=== PATIENT | female | born 1990 | race Caucasian/White ===

== ENCOUNTER 2016-09-15 13:58 | Emergency (ER) | payer OTHER ==
[2016-09-15] MEDS ORDERED: KETOROLAC 30 MG/ML VIAL (J1885) As Ordered ONE (16:57)
[2016-09-15] MEDS ORDERED: diazePAM 5 MG TAB As Ordered ONE (16:58)
[2016-09-15] MEDS ORDERED: PERCOCET 5MG/325MG TAB As Ordered ONE (16:58)
[2016-09-15 17:58] LABS: BASO # 0.2 K/mm3 (0.0-0.2); BASO % 1.5 % (0.0-1.0); EOS % 0.2 % (0.0-3.0); LARGE UNSTAINED CELL # 0.1 K/mm3 (0.0-0.4); LARGE UNSTAINED CELL % 1.3 % (0.0-4.0); LYMPH # 1.8 K/mm3 (1.5-6.5); LYMPH % 17.1 % (24.0-44.0); MEAN CORPUSCULAR HEMOGLOBIN 26.4 pg (27.0-33.0); MEAN CORPUSCULAR HGB CONC 33.1 g/dl (32.0-36.5); MEAN CORPUSCULAR VOLUME 79.9 fl (80.0-96.0); MONO # 0.5 K/mm3 (0.0-0.8); MONO % 5.1 % (0.0-5.0); NEUTROPHILS # 7.2 K/mm3 (1.8-7.7); NEUTROPHILS % 74.9 % (36.0-66.0); PLATELET COUNT, AUTOMATED 301 k/mm3 (150-450); RED CELL DISTRIBUTION WIDTH 14.6 % (11.5-14.5); WHITE BLOOD COUNT 9.6 K/mm3 (4.0-10.0)
[2016-09-15 18:41] LABS: ERYTHROCYTE SEDIMENTATION RATE 14 mm/hr (0-20)
--- NOTE | 2016-09-15 19:16 | EDDOCDS ---
Physician Documentation [facility] Name: Xin Waterman Age: 26 yrs Sex: Female : 1990 Arrival Date: 09/15/2016 Time: 13:58 Bed 31 Private MD: Berny Oscar Disposition: 09/15 18:50 Critical Care: Critical care not applicable. le Disposition: 09/15/16 18:48 Discharged to Home/Self Care. Impression: Low back pain. - Condition is Stable. - Discharge Instructions: Back Pain, Adult, Musculoskeletal Pain. - Medication Reconciliation, Local Pharmacy Hours form. - Follow up: Berny Oscar; When: Keep your scheduled appointment on 09/23; Reason: Recheck today's complaints, Continuance of care, To establish care. - Problem is an ongoing problem. - Symptoms are unchanged. - Notes: Continue medications previously prescribed for you All labs are WNL, there isn't any sign of infection and no sign of spinal cord compression (the 2 emergent reasons an MRI would be ordered in an ER) Keep your scheduled appointment, on 09/23, your PCP can get authorization for MRI to be completed, if he feels you need one Return to the ED for fever, numbness in genital area, loss of bowel/bladder control or any other concerns Historical: - Allergies: PENICILLINS; - Home Meds: 1. cyclobenzaprine 10 mg Oral tab 1 tab 3 times per day 2. ibuprofen 800 mg Oral tab 1 tab 3 times per day - PMHx: Degenerative disc disease; - PSHx: back surgery; Cholecystectomy; Tonsillectomy; ; - Social history: Smoking status: Patient uses tobacco products, current some day smoker. No barriers to communication noted, The patient speaks fluent Prydeinig, Speaks appropriately for age. - Family history: No immediate family members are acutely ill. - : The pt / caregiver states he / she is not on anticoagulants. Home medication list is obtained from the patient. - Exposure Risk Screening:: None identified. 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 7 in. (170.18 cm) (R); Pain 6/10; 19:13 BP 150 / 81; Pulse 83; Resp 17; Temp 98.3(O); Pulse Ox 99% ; mb9 14:00 Body Mass Index 36.65 (106.14 kg, 170.18 cm) gr2 MDM: 16:32 [facility] Payment Agreement was scanned into [employer] and attached to record. gjb 16:32 Financial registration complete. gjb 16:39 ketorolac 60 mg IM once ordered. le 16:39 Diazepam 5 mg PO once ordered. le 16:39 oxyCODONE-acetaminophen 5 mg-325 mg 1 tabs PO once ordered. le 16:40 CBC with Diff Ordered. EDMS 16:40 ESR Ordered. EDMS 16:40 CRP Ordered. EDMS 16:48 Misc. Nursing Order ordered. le 16:48 Misc Crime Victim Specialist Order ordered. le 18:12 Misc Crime Victim Specialist Order complete. mb9 18:12 CBC with Diff Reviewed. le 18:47 CBC with Diff Reviewed. le 18:47 ESR Reviewed. le 18:47 CRP Reviewed. le Administered Medications: 17:42 Not Given (Patient Refused): ketorolac 60 mg IM once mb9 17:42 Not Given (Patient Refused): Diazepam 5 mg PO once mb9 17:42 Not Given (Patient Refused): oxyCODONE-acetaminophen 5 mg-325 mg 1 tabs PO once mb9 Signatures: Dispatcher [employer] EDMS Seth Pandey RN RN mlb1 Elke Grant FNP FNP le Belles, Michael, RN RN mb9 Gianna Celis The chart was reviewed and I authenticate all verbal orders and agree with the evaluation and treatment provided.Corrections: (The following items were deleted from the chart) 14:57 14:48 Spine. Lumbosacral, complete+XR ordered. EDMS EDMS Attachments: 16:32 [facility] [place] Payment Agreement gjb MTDD
--- NOTE | 2016-09-15 19:16 | EDDOCDS ---
Nurse's Notes [facility] Name: Xin Waterman Age: 26 yrs Sex: Female : 1990 Arrival Date: 09/15/2016 Time: 13:58 Bed 31 Private MD: Berny Oscar Diagnosis: Low back pain Presentation: 09/15 14:04 Presenting complaint: Patient states: Low back pain began a month ago after a fall mlb1 worsening since. Acute neurological deficits are not present. Mechanism of Injury: Fall. Adult Sepsis Screening: The patient does not have new or worsening altered mentation. Patient's respiratory rate is less than 22. Systolic blood pressure is greater than 100. Patient has a qSOFA score of 0- Negative Sepsis Screen. Suicide/Homicide risk assessment- the patient denies having any suicidal and/or homicidal ideations and does not present with any other emotional, behavioral or mental health complaints. Status: The patient is a dependent. Transition of care: patient was not received from another setting of care. 14:04 Acuity: HELENA Level 4 mlb1 14:04 Method Of Arrival: Walkin/Carried/Asstd mlb1 Triage Assessment: 14:09 General: Appears in no apparent distress, Behavior is appropriate for age, cooperative. mlb1 Pain: Location: low back area Pain currently is 7 out of 10 on a pain scale. Pt Declines HIV testing. Musculoskeletal: Range of motion intact in all extremities. 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 cyclobenzaprine 10 mg Oral tab 1 tab 3 times per day 2. ibuprofen 800 mg Oral tab 1 tab 3 times per day - PMHx: Degenerative disc disease; - PSHx: back surgery; Cholecystectomy; Tonsillectomy; ; - Social history: Smoking status: Patient uses tobacco products, current some day smoker. No barriers to communication noted, The patient speaks fluent Pashto, Speaks appropriately for age. - Family history: No immediate family members are acutely ill. - : The pt / caregiver states he / she is not on anticoagulants. Home medication list is obtained from the patient. - Exposure Risk Screening:: None identified. Screenin:13 Screening information is obtained from the patient. Fall risk: No risks identified. mb9 Assistance ADL's: requires no assistance with activities of daily living. Abuse/DV Screen: The patient / caregiver reports he/she is: not in a situation that causes fear, pain or injury. Nutritional screening: No deficits noted. Advance Directives: There is no active DNR order. home support is adequate. Assessment: 17:43 General: Behavior is crying, fussy, inappropriate for age. Pain: Location: low back mb9 area Pain currently is 6 out of 10 on a pain scale. Neurological: Reports numbness. Neurological: Reports pt reports numbness down left leg. . Respiratory: Airway is patent Respiratory effort is even, unlabored. 18:47 Reassessment:. Reassessment: Patient states symptoms have not improved. General: mb9 Appears in no apparent distress, Behavior is fussy. Vital Signs: 14:00 BP 143 / 75; Pulse 77; Resp 18 S; Temp 97.4(O); Pulse Ox 100% on R/A; Weight 106.14 kg gr2 (R); Height 5 ft. 7 in. (170.18 cm) (R); Pain 6/10; 19:13 BP 150 / 81; Pulse 83; Resp 17; Temp 98.3(O); Pulse Ox 99% ; mb9 14:00 Body Mass Index 36.65 (106.14 kg, 170.18 cm) gr2 Vitals: 14:00 Log In Time: September 15, 2016 at 14:00. gr2 ED Course: 14:00 Patient visited by Pradip Chester. gr2 14:00 Berny Oscar is Private Physician. gr2 14:00 Patient moved to Waiting gr2 14:01 Patient visited by Pradip Chester. gr2 14:01 Patient moved to Pre RCE gr2 14:04 Patient visited by Seth Pandey, JOANNE. mlb1 14:05 Triage Initiated mlb1 14:10 Patient visited by Seth Pandey, JOANNE. mlb1 16:15 Patient moved to 31 [facility] 16:16 Elke Grant FNP is [facility]. le 16:23 Patient visited by Elke Grant FNP. le 16:32 [facility] [place] Agreement was scanned into [employer] and attached to record. gjb 16:41 Patient name changed from Xin\S\M\S\Guevara\S\ to Xin\S\ \S\Guevara. EDMS 17:42 Patient visited by Seth Valiente RN. mb9 17:42 CBC with Diff Sent. mb9 17:42 ESR Sent. mb9 17:42 CRP Sent. mb9 18:46 Patient visited by Seth Valiente RN. mb9 18:47 Berny Oscar is Referral Physician. le 19:13 The patient / caregiver is instructed regarding the plan of care and ED course. mb9 19:13 No IV's were initiated during this patient's visit. No procedures done that require mb9 assistance. Administered Medications: 17:42 Not Given (Patient Refused): ketorolac 60 mg IM once mb9 17:42 Not Given (Patient Refused): Diazepam 5 mg PO once mb9 17:42 Not Given (Patient Refused): oxyCODONE-acetaminophen 5 mg-325 mg 1 tabs PO once mb9 Order Results: Lab Order: CBC with Diff; SPEC'M 09/15/16 17:31 Test: WHITE BLOOD COUNT; Value: 9.6; Range: 4.0-10.0; Units: K/mm3; Status: F Test: RED BLOOD COUNT; Value: 4.98; Range: 4.00-5.40; Units: M/mm3; Status: F Test: HEMOGLOBIN; Value: 13.2; Range: 12.0-16.0; Units: g/dl; Status: F Test: HEMATOCRIT; Value: 39.8; Range: 36.0-47.0; Units: %; Status: F Test: MEAN CORPUSCULAR VOLUME; Value: 79.9; Range: 80.0-96.0; Abnormal: Below low normal; Units: fl; Status: F Test: MEAN CORPUSCULAR HEMOGLOBIN; Value: 26.4; Range: 27.0-33.0; Abnormal: Below low normal; Units: pg; Status: F Test: MEAN CORPUSCULAR HGB CONC; Value: 33.1; Range: 32.0-36.5; Units: g/dl; Status: F Test: RED CELL DISTRIBUTION WIDTH; Value: 14.6; Range: 11.5-14.5; Abnormal: Above high normal; Units: %; Status: F Test: PLATELET COUNT, AUTOMATED; Value: 301; Range: 150-450; Units: k/mm3; Status: F Test: NEUTROPHILS %; Value: 74.9; Range: 36.0-66.0; Abnormal: Above high normal; Units: %; Status: F Test: LYMPH %; Value: 17.1; Range: 24.0-44.0; Abnormal: Below low normal; Units: %; Status: F Test: MONO %; Value: 5.1; Range: 0.0-5.0; Abnormal: Above high normal; Units: %; Status: F Test: EOS %; Value: 0.2; Range: 0.0-3.0; Units: %; Status: F Test: BASO %; Value: 1.5; Range: 0.0-1.0; Abnormal: Above high normal; Units: %; Status: F Test: LARGE UNSTAINED CELL %; Value: 1.3; Range: 0.0-4.0; Units: %; Status: F Test: NEUTROPHILS #; Value: 7.2; Range: 1.8-7.7; Units: K/mm3; Status: F Test: LYMPH #; Value: 1.8; Range: 1.5-6.5; Units: K/mm3; Status: F Test: MONO #; Value: 0.5; Range: 0.0-0.8; Units: K/mm3; Status: F Test: EOS #; Value: 0.0; Range: 0.0-0.50; Units: K/mm3; Status: F Test: BASO #; Value: 0.2; Range: 0.0-0.2; Units: K/mm3; Status: F Test: LARGE UNSTAINED CELL #; Value: 0.1; Range: 0.0-0.4; Units: K/mm3; Status: F Lab Order: ESR; SPEC'M 09/15/16 17:31 Test: ERYTHROCYTE SEDIMENTATION RATE; Value: 14; Range: 0-20; Units: mm/hr; Status: F Lab Order: CRP; SPEC'M 09/15/16 17:31 Test: C REACTIVE PROTEIN QUANTITATIV; Value: < 0.30; Range: 0.00-0.30; Units: MG/DL; Status: F Outcome: 18:48 Discharge ordered by Provider. le 19:13 Discharge Assessment: Patient awake, alert and oriented x 3. No cognitive and/or mb9 functional deficits noted. Patient verbalized understanding of disposition instructions. patient administered narcotics - no. The following High Risk Discharge criteria are identified: None. Discharged to home ambulatory. Condition: good Condition: stable Condition: improved. Discharge instructions given to patient, Instructed on discharge instructions, follow up and referral plans. medication usage, Demonstrated understanding of instructions, Pt was receptive of discharge instructions/ teaching. No special radiology studies were completed. Property :Personal belongings accompany Pt. 19:15 Patient left the ED. mb9 Signatures: Dispatcher [employer] EDMayi Gaviria, RN RN Seth Mcclelland RN RN mlb1 Elke Grant, QUALITY ASSURANCE SUPERVISOR FINAL QUALITY ASSURANCE SUPERVISOR FINAL Pradip Samaniego 2 Seth ValienteRN RN mb9 Gianna Celis TANIA
--- NOTE | 2016-09-17 20:17 | EDDOCDS ---
Nurse's Notes [facility] Name: Xin Waterman Age: 26 yrs Sex: Female : 1990 Arrival Date: 09/15/2016 Time: 13:58 Bed 31 Private MD: Berny Oscar Diagnosis: Low back pain Presentation: 09/15 14:04 Presenting complaint: Patient states: Low back pain began a month ago after a fall mlb1 worsening since. Acute neurological deficits are not present. Mechanism of Injury: Fall. Adult Sepsis Screening: The patient does not have new or worsening altered mentation. Patient's respiratory rate is less than 22. Systolic blood pressure is greater than 100. Patient has a qSOFA score of 0- Negative Sepsis Screen. Suicide/Homicide risk assessment- the patient denies having any suicidal and/or homicidal ideations and does not present with any other emotional, behavioral or mental health complaints. Status: The patient is a dependent. Transition of care: patient was not received from another setting of care. 14:04 Acuity: HELENA Level 4 mlb1 14:04 Method Of Arrival: Walkin/Carried/Asstd mlb1 Triage Assessment: 14:09 General: Appears in no apparent distress, Behavior is appropriate for age, cooperative. mlb1 Pain: Location: low back area Pain currently is 7 out of 10 on a pain scale. Pt Declines HIV testing. Musculoskeletal: Range of motion intact in all extremities. 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 cyclobenzaprine 10 mg Oral tab 1 tab 3 times per day 2. ibuprofen 800 mg Oral tab 1 tab 3 times per day - PMHx: Degenerative disc disease; - PSHx: back surgery; Cholecystectomy; Tonsillectomy; ; - Social history: Smoking status: Patient uses tobacco products, current some day smoker. No barriers to communication noted, The patient speaks fluent Bengali, Speaks appropriately for age. - Family history: No immediate family members are acutely ill. - : The pt / caregiver states he / she is not on anticoagulants. Home medication list is obtained from the patient. - Exposure Risk Screening:: None identified. Screenin:13 Screening information is obtained from the patient. Fall risk: No risks identified. mb9 Assistance ADL's: requires no assistance with activities of daily living. Abuse/DV Screen: The patient / caregiver reports he/she is: not in a situation that causes fear, pain or injury. Nutritional screening: No deficits noted. Advance Directives: There is no active DNR order. home support is adequate. Assessment: 17:43 General: Behavior is crying, fussy, inappropriate for age. Pain: Location: low back mb9 area Pain currently is 6 out of 10 on a pain scale. Neurological: Reports numbness. Neurological: Reports pt reports numbness down left leg. . Respiratory: Airway is patent Respiratory effort is even, unlabored. 18:47 Reassessment:. Reassessment: Patient states symptoms have not improved. General: mb9 Appears in no apparent distress, Behavior is fussy. Vital Signs: 14:00 BP 143 / 75; Pulse 77; Resp 18 S; Temp 97.4(O); Pulse Ox 100% on R/A; Weight 106.14 kg gr2 (R); Height 5 ft. 7 in. (170.18 cm) (R); Pain 6/10; 19:13 BP 150 / 81; Pulse 83; Resp 17; Temp 98.3(O); Pulse Ox 99% ; mb9 14:00 Body Mass Index 36.65 (106.14 kg, 170.18 cm) gr2 Vitals: 14:00 Log In Time: September 15, 2016 at 14:00. gr2 ED Course: 14:00 Patient visited by Pradip Chester. gr2 14:00 Berny Oscar is Private Physician. gr2 14:00 Patient moved to Waiting gr2 14:01 Patient visited by Pradip Chester. gr2 14:01 Patient moved to Pre RCE gr2 14:04 Patient visited by Seth Pandey, JOANNE. mlb1 14:05 Triage Initiated mlb1 14:10 Patient visited by Seth Pandey, JOANNE. mlb1 16:15 Patient moved to 31 [facility] 16:16 Elke Grant FNP is [facility]. le 16:23 Patient visited by Elke Grant FNP. le 16:32 [facility] Payment Agreement was scanned into [employer] and attached to record. gjb 16:41 Patient name changed from Xin\S\M\S\Guevara\S\ to Xin\S\ \S\Guevara. EDMS 17:42 Patient visited by Seth Valiente RN. mb9 17:42 CBC with Diff Sent. mb9 17:42 ESR Sent. mb9 17:42 CRP Sent. mb9 18:46 Patient visited by Seth Valiente RN. mb9 18:47 Berny Oscar is Referral Physician. le 19:13 The patient / caregiver is instructed regarding the plan of care and ED course. mb9 19:13 No IV's were initiated during this patient's visit. No procedures done that require mb9 assistance. 09/16 12:41 T-Sheet-- Draft Copy was scanned into [employer] and attached to record. gb Administered Medications: 09/15 17:42 Not Given (Patient Refused): ketorolac 60 mg IM once mb9 17:42 Not Given (Patient Refused): Diazepam 5 mg PO once mb9 17:42 Not Given (Patient Refused): oxyCODONE-acetaminophen 5 mg-325 mg 1 tabs PO once mb9 Order Results: Lab Order: CBC with Diff; SPEC'M 09/15/16 17:31 Test: WHITE BLOOD COUNT; Value: 9.6; Range: 4.0-10.0; Units: K/mm3; Status: F Test: RED BLOOD COUNT; Value: 4.98; Range: 4.00-5.40; Units: M/mm3; Status: F Test: HEMOGLOBIN; Value: 13.2; Range: 12.0-16.0; Units: g/dl; Status: F Test: HEMATOCRIT; Value: 39.8; Range: 36.0-47.0; Units: %; Status: F Test: MEAN CORPUSCULAR VOLUME; Value: 79.9; Range: 80.0-96.0; Abnormal: Below low normal; Units: fl; Status: F Test: MEAN CORPUSCULAR HEMOGLOBIN; Value: 26.4; Range: 27.0-33.0; Abnormal: Below low normal; Units: pg; Status: F Test: MEAN CORPUSCULAR HGB CONC; Value: 33.1; Range: 32.0-36.5; Units: g/dl; Status: F Test: RED CELL DISTRIBUTION WIDTH; Value: 14.6; Range: 11.5-14.5; Abnormal: Above high normal; Units: %; Status: F Test: PLATELET COUNT, AUTOMATED; Value: 301; Range: 150-450; Units: k/mm3; Status: F Test: NEUTROPHILS %; Value: 74.9; Range: 36.0-66.0; Abnormal: Above high normal; Units: %; Status: F Test: LYMPH %; Value: 17.1; Range: 24.0-44.0; Abnormal: Below low normal; Units: %; Status: F Test: MONO %; Value: 5.1; Range: 0.0-5.0; Abnormal: Above high normal; Units: %; Status: F Test: EOS %; Value: 0.2; Range: 0.0-3.0; Units: %; Status: F Test: BASO %; Value: 1.5; Range: 0.0-1.0; Abnormal: Above high normal; Units: %; Status: F Test: LARGE UNSTAINED CELL %; Value: 1.3; Range: 0.0-4.0; Units: %; Status: F Test: NEUTROPHILS #; Value: 7.2; Range: 1.8-7.7; Units: K/mm3; Status: F Test: LYMPH #; Value: 1.8; Range: 1.5-6.5; Units: K/mm3; Status: F Test: MONO #; Value: 0.5; Range: 0.0-0.8; Units: K/mm3; Status: F Test: EOS #; Value: 0.0; Range: 0.0-0.50; Units: K/mm3; Status: F Test: BASO #; Value: 0.2; Range: 0.0-0.2; Units: K/mm3; Status: F Test: LARGE UNSTAINED CELL #; Value: 0.1; Range: 0.0-0.4; Units: K/mm3; Status: F Lab Order: ESR; SPEC'M 09/15/16 17:31 Test: ERYTHROCYTE SEDIMENTATION RATE; Value: 14; Range: 0-20; Units: mm/hr; Status: F Lab Order: CRP; SPEC'M 09/15/16 17:31 Test: C REACTIVE PROTEIN QUANTITATIV; Value: < 0.30; Range: 0.00-0.30; Units: MG/DL; Status: F Outcome: 18:48 Discharge ordered by Provider. le 19:13 Discharge Assessment: Patient awake, alert and oriented x 3. No cognitive and/or mb9 functional deficits noted. Patient verbalized understanding of disposition instructions. patient administered narcotics - no. The following High Risk Discharge criteria are identified: None. Discharged to home ambulatory. Condition: good Condition: stable Condition: improved. Discharge instructions given to patient, Instructed on discharge instructions, follow up and referral plans. medication usage, Demonstrated understanding of instructions, Pt was receptive of discharge instructions/ teaching. No special radiology studies were completed. Property :Personal belongings accompany Pt. 19:15 Patient left the ED. mb9 Signatures: Dispatcher [employer] EDMS Mayi Lemons, RN RN Verónica Soto, Seth Braga RN RN mlb1 Elke Grant, ELECTRONIC CALIBRATION TECHNICIAN ELECTRONIC CALIBRATION TECHNICIAN Pradip Samaniego 2 Seth ValienteRN RN mb9 Gianna Celis Chart Complete [facility]
--- NOTE | 2016-09-17 20:17 | EDDOCDS ---
Physician Documentation [facility] Name: Xin Waterman Age: 26 yrs Sex: Female : 1990 Arrival Date: 09/15/2016 Time: 13:58 Bed 31 Private MD: Berny Oscar Disposition: 09/15 18:50 Critical Care: Critical care not applicable. le Disposition: 09/15/16 18:48 Discharged to Home/Self Care. Impression: Low back pain. - Condition is Stable. - Discharge Instructions: Back Pain, Adult, Musculoskeletal Pain. - Medication Reconciliation, Local Pharmacy Hours form. - Follow up: Berny Oscar; When: Keep your scheduled appointment on 09/23; Reason: Recheck today's complaints, Continuance of care, To establish care. - Problem is an ongoing problem. - Symptoms are unchanged. - Notes: Continue medications previously prescribed for you All labs are WNL, there isn't any sign of infection and no sign of spinal cord compression (the 2 emergent reasons an MRI would be ordered in an ER) Keep your scheduled appointment, on 09/23, your PCP can get authorization for MRI to be completed, if he feels you need one Return to the ED for fever, numbness in genital area, loss of bowel/bladder control or any other concerns Historical: - Allergies: PENICILLINS; - Home Meds: 1. cyclobenzaprine 10 mg Oral tab 1 tab 3 times per day 2. ibuprofen 800 mg Oral tab 1 tab 3 times per day - PMHx: Degenerative disc disease; - PSHx: back surgery; Cholecystectomy; Tonsillectomy; ; - Social history: Smoking status: Patient uses tobacco products, current some day smoker. No barriers to communication noted, The patient speaks fluent Slovak, Speaks appropriately for age. - Family history: No immediate family members are acutely ill. - : The pt / caregiver states he / she is not on anticoagulants. Home medication list is obtained from the patient. - Exposure Risk Screening:: None identified. 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 7 in. (170.18 cm) (R); Pain 6/10; 19:13 BP 150 / 81; Pulse 83; Resp 17; Temp 98.3(O); Pulse Ox 99% ; mb9 14:00 Body Mass Index 36.65 (106.14 kg, 170.18 cm) gr2 MDM: 16:32 [facility] Payment Agreement was scanned into [employer] and attached to record. b 16:32 Financial registration complete. gjb 16:39 ketorolac 60 mg IM once ordered. le 16:39 Diazepam 5 mg PO once ordered. le 16:39 oxyCODONE-acetaminophen 5 mg-325 mg 1 tabs PO once ordered. le 16:40 CBC with Diff Ordered. EDMS 16:40 ESR Ordered. EDMS 16:40 CRP Ordered. EDMS 16:48 Misc. Nursing Order ordered. le 16:48 Misc Power Nut Runner Operator Order ordered. le 18:12 Misc Power Nut Runner Operator Order complete. mb9 18:12 CBC with Diff Reviewed. le 18:47 CBC with Diff Reviewed. le 18:47 ESR Reviewed. le 18:47 CRP Reviewed. le 09/16 12:41 T-Sheet-- Draft Copy was scanned into [employer] and attached to record. gb Administered Medications: 09/15 17:42 Not Given (Patient Refused): ketorolac 60 mg IM once mb9 17:42 Not Given (Patient Refused): Diazepam 5 mg PO once mb9 17:42 Not Given (Patient Refused): oxyCODONE-acetaminophen 5 mg-325 mg 1 tabs PO once mb9 Signatures: Dispatcher [employer] EDMS Verónica Mariee, Reg Reg Seth Curtis RN RN mlb1 Elke Grant, CANNONEER CANNONEER Seth MunroeRN RN mb9 Gianna Celis The chart was reviewed and I authenticate all verbal orders and agree with the evaluation and treatment provided.Corrections: (The following items were deleted from the chart) 14:57 14:48 Spine. Lumbosacral, complete+XR ordered. EDMS EDMS Attachments: 16:32 [facility] Payment Agreement [facility] 09/16 12:41 T-Sheet-- Draft Copy gb Chart Complete MTDD
--- NOTE | 2016-09-17 20:17 | EDDOCDS ---
Physician Documentation [facility] Name: Xin Waterman Age: 26 yrs Sex: Female : 1990 Arrival Date: 09/15/2016 Time: 13:58 Bed 31 Private MD: Berny Oscar Disposition: 09/15 18:50 Critical Care: Critical care not applicable. le Disposition: 09/15/16 18:48 Discharged to Home/Self Care. Impression: Low back pain. - Condition is Stable. - Discharge Instructions: Back Pain, Adult, Musculoskeletal Pain. - Medication Reconciliation, Local Pharmacy Hours form. - Follow up: Berny Oscar; When: Keep your scheduled appointment on 09/23; Reason: Recheck today's complaints, Continuance of care, To establish care. - Problem is an ongoing problem. - Symptoms are unchanged. - Notes: Continue medications previously prescribed for you All labs are WNL, there isn't any sign of infection and no sign of spinal cord compression (the 2 emergent reasons an MRI would be ordered in an ER) Keep your scheduled appointment, on 09/23, your PCP can get authorization for MRI to be completed, if he feels you need one Return to the ED for fever, numbness in genital area, loss of bowel/bladder control or any other concerns Historical: - Allergies: PENICILLINS; - Home Meds: 1. cyclobenzaprine 10 mg Oral tab 1 tab 3 times per day 2. ibuprofen 800 mg Oral tab 1 tab 3 times per day - PMHx: Degenerative disc disease; - PSHx: back surgery; Cholecystectomy; Tonsillectomy; ; - Social history: Smoking status: Patient uses tobacco products, current some day smoker. No barriers to communication noted, The patient speaks fluent Albanian, Speaks appropriately for age. - Family history: No immediate family members are acutely ill. - : The pt / caregiver states he / she is not on anticoagulants. Home medication list is obtained from the patient. - Exposure Risk Screening:: None identified. GRASS CUTTER: 14:09 LMP N/A - Recent mlb1 Vital Signs: 14:00 BP 143 / 75; Pulse 77; Resp 18 S; Temp 97.4(O); Pulse Ox 100% on R/A; Weight 106.14 kg gr2 / 234 lbs (R); Height 5 ft. 7 in. (170.18 cm) (R); Pain 6/10; 19:13 BP 150 / 81; Pulse 83; Resp 17; Temp 98.3(O); Pulse Ox 99% ; mb9 14:00 Body Mass Index 36.65 (106.14 kg, 170.18 cm) gr2 MDM: 16:32 [facility] Payment Agreement was scanned into ReadWave and attached to record. b 16:32 Financial registration complete. gjb 16:39 ketorolac 60 mg IM once ordered. le 16:39 Diazepam 5 mg PO once ordered. le 16:39 oxyCODONE-acetaminophen 5 mg-325 mg 1 tabs PO once ordered. le 16:40 CBC with Diff Ordered. EDMS 16:40 ESR Ordered. EDMS 16:40 CRP Ordered. EDMS 16:48 Misc. Nursing Order ordered. le 16:48 Misc Converter Operator Order ordered. le 18:12 Misc Converter Operator Order complete. mb9 18:12 CBC with Diff Reviewed. le 18:47 CBC with Diff Reviewed. le 18:47 ESR Reviewed. le 18:47 CRP Reviewed. le 09/16 12:41 T-Sheet-- Draft Copy was scanned into ReadWave and attached to record. gb Administered Medications: 09/15 17:42 Not Given (Patient Refused): ketorolac 60 mg IM once mb9 17:42 Not Given (Patient Refused): Diazepam 5 mg PO once mb9 17:42 Not Given (Patient Refused): oxyCODONE-acetaminophen 5 mg-325 mg 1 tabs PO once mb9 Signatures: Dispatcher [employer] EDMS Verónica Mariee, Reg Reg Seth Curtis RN RN mlb1 Elke Grant, DOCUMENT CONTROLLER DOCUMENT CONTROLLER Seth MunroeRN RN mb9 Gianna Celis The chart was reviewed and I authenticate all verbal orders and agree with the evaluation and treatment provided.Corrections: (The following items were deleted from the chart) 14:57 14:48 Spine. Lumbosacral, complete+XR ordered. EDMS EDMS Attachments: 16:32 [facility] Payment Agreement [facility] 09/16 12:41 T-Sheet-- Draft Copy gb Chart Complete MTDD
== END 2016-09-15 19:15 | disposition home or self-care (01) ==
LOC: M ED 13:58
DX: M54.5 Low back pain (principal); M51.9 Unspecified thoracic, thoracolumbar and lumbosacral intervertebral disc disorder; F17.210 Nicotine dependence, cigarettes, uncomplicated; Z79.899 Other long term (current) drug therapy; Z88.0 Allergy status to penicillin
CPT/HCPCS: 36415; 85025; 85652; 86140; 99283; J1885

== ENCOUNTER → 2016-11-30 | Outpatient (CLI) | payer OTHER ==
--- NOTE | 2016-12-08 23:59 | ECWPNPC ---
PATIENT NAME: JAY HORTON : 1990 GENDER: FEMALE VISIT DATE: 11/30/2016 DISCHARGE DATE: 11/30/16 1503 VISIT LOCKED DATE TIME: PHYSICIAN: ANDREA MELGOZA RESOURCE: ANDREA MELGOZA REASON FOR APPOINTMENT 1. BACK PAIN HISTORY OF PRESENT ILLNESS NEW PATIENT CONSULT: WHEN DID YOUR PAIN FIRST START? . BRIEFLY DESCRIBE HOW YOUR PAIN STARTED? . HOW DOES YOUR PAIN CHANGE WITH TIME? . DOES YOUR PAIN AWAKEN YOU FROM SLEEP? . HOW MANY HOURS OF SLEEP DO YOU NORMALLY GET? . ANY DIAGNOSTIC TESTING? . FACILITY WHERE TESTS WERE DONE? ____. PAIN TREATMENT TREATMENT YES CANCER HAVE YOU EVER HAD ANY TYPE OF CANCER?NO NO. PAIN SCREENING: PATIENT HAS A COMPLAINT OF ACUTE OR CHRONIC PAIN :YES FALL RISK SCREENING: SCREENING :NO FALLS IN THE PAST YEAR ROSARIO INVENTORY: QUESTIONNAIRE ASSESSEDYES SCORE VALUE CALCULATED YES SCORE: NOTES IN BECKS THAT SHE HAS THOUGHTS OF KILLING HERSELF, BUT WHEN ASKED THIS SECIFICALLY, DENIES THIS TODAY'S VISIT: NOTES: REFERRED BY DR MATTHEWS/ALEXUS FOR CHRONIC LOW BACK PAIN WITH INCREASED DISCOMFORT. IS /P LAMI X 3. AFTER OF 2ND CHILD HAD NEW PAIN INTO LEFT LEG TO LEVEL OF KNEE. PAIN IMPROVED AFTER 3RD SURGERY. HAD FALL 08/06 TO BUTTUCK AND PAIN IN LEFT LEG BEGAN TO GET WORSE. NOTES PAIN IN BACK IS INTERMITTANT. PAIN IN LEFT LEG IS MORE INTERMITTANT. USUALLY IS JUST IN LEFT CALF. HAS N/T POST UP POST LEFT LEG - NON TO TOES. LEFT WEAKER THAN RIGHT IMPROVED SINCESURGERY. NO SADDLE N/T, NO LOSS OF BOWELS. PROLONGED SITTING MAKES WORSE. PT WAS KAUSHAL. NOT CURRENTLY DOING EXERCISES AND STRETCHES. SLEEP IS OK. . CURRENT MEDICATIONS TAKING BACLOFEN 10 MG TABLET 1 TABLET WITH FOOD OR MILK ORALLY THREE TIMES A DAY TAKING MELOXICAM 15 MG TABLET 1 TABLET ORALLY ONCE A DAY NOT-TAKING GUMMI BEAR MULTIVITAMIN/MIN NOT-TAKING LIDOCAINE HCL 20 MG/ML SOLUTION 10 ML MOUTH/THROAT EVERY 3 HRS MEDICATION LIST REVIEWED AND RECONCILED WITH THE PATIENT PAST MEDICAL HISTORY BACK PAIN ALLERGIES PENICILLIN (FOR ALLERGIES USE ONLY): HIVES: ALLERGY SURGICAL HISTORY BACK SURGERY 2009, 2010, AND 2015 CHOLECYSTECTOMY 01/2013 C-SECTIONS 12/2013 AND 05/2016 FAMILY HISTORY FATHER: MOTHER: ALIVE, DIAGNOSED WITH DIABETES, OTHER 2DAUGHTER(S) - HEALTHY. SOCIAL HISTORY GENERAL: TOBACCO USE ARE YOU A:CURRENT SMOKER HOW MANY CIGARETTES A DAY DO YOU SMOKE?11- PATIENT COUNSELED ON THE DANGERS OF TOBACCO USE AND URGED TO QUIT:11/30/2016 ARE YOU INTERESTED IN QUITTING?NOT READY TO QUIT COUNSELED THE PATIENT ON SMOKING EFFECTS, EDUCATION [id number]/11/2017 RECREATIONAL DRUG USE DRUG USE?NO CAFFEINE CAFFEINE USE?NO DIET: REGULAR. ADVENT [id number] NONE LANGUAGE LANGUAGES SPOKEN:LAO LEARNING BARRIERS / SPECIAL NEEDS BARRIERS TO LEARNING?NO HEARING IMPAIRED?NO VISION IMPAIRED?NO COGNITIVELY IMPAIRED?NO READINESS TO LEARN?YES LEARNING PREFERENCES?NO LEARNING CAPABILITIES PRESENT?YES EMOTIONAL BARRIERS?NO SPECIAL DEVICES?NO FAMILY RESOURCE MANAGEMENT PROFESSOR NEEDED?NO PAIN CLINIC PFS, CLERGY, PUBLIC HEALTH REFERRALS CLERGY REFERRAL NEEDED?NO WAS THE PROVIDER NOTIFIED OF ANY PERTINENT INFO?NO PFS REFERRAL NEEDED?NO PUBLIC HEALTH REFERRAL NEEDED?NO PATIENT: ____. ADVANCED DIRECTIVES HEALTH CARE PROXY?NO WOULD YOU LIKE MORE INFORMATION?NO DO YOU HAVE A DNR?NO WOULD YOU LIKE MORE INFORMATION?NO LIVING WILL?NO WOULD YOU LIKE MORE INFORMATION?NO POWER OF FINANCIAL MANAGEMENT?NO WOULD YOU LIKE MORE INFORMATION?NO REVIEW OF SYSTEMS CONSTITUTIONAL: ANY CHANGE IN YOUR MEDICAL CONDITION? NO . CHILLS NO . FEVER NO . INFECTION: DO YOU HAVE NEW INFECTIONS? NO . DO YOU HAVE HISTORY OF MRSA? NO . MUSCULOSKELETAL: ANY NEW PATTERNS OF PAIN OR NUMBNESS? NO . SYTEMIC LUPUS NO . GASTROENTEROLOGY: ANY NEW CHANGE IN BOWEL CONTROL? NO . BARRETTS ESOPHAGUS NO . CIRRHOSIS NO . HEPATITIS NO . LIVER FAILURE NO . ACID REFLUX NO . UNEXPLAINED WEIGHT LOSS NO . GENITOURINARY: ANY NEW CHANGE IN BLADDER CONTROL? NO . IS THERE A CHANCE YOU COULD BE ? NO . HEMATOLOGY/LYMPH: DO YOU TAKE ANY BLOOD THINNERS? (FOR EXAMPLE- COUMADIN, PLAVIX, AGGRENOX, PLATEL, PRADAXA, OR XARELTO) NO . WHEN WAS YOUR LAST DOSE? DATE: TIME: . LOW PLATELET COUNT NO . SICKLE CELL DISEASE NO . VON WILLIEBRANDS NO . FACTOR V LEIDEN NO . THALLASEMIA NO . ANEMIA NO . EASY BRUISING NO . NEUROLOGY: HAVE YOU FALLEN IN THE PAST 6 MONTHS? YES . ANY NEW EXTREMITY NUMBNESS OR WEAKNESS? YES, LEFT LEG WEAKNESS BUT NOT WEAK BEFORE SURGERY . HEAD INJURY NO . DEMENTIA NO . CEREBRAL PALSY NO . MULTIPLE SCLEROSIS NO . DIZZINESS NO . HEADACHE NO . STROKES NO . VERTIGO NO . CARDIOLOGY: DO YOU HAVE A PACEMAKER OR DEFIBRILLATOR? NO . ANGINA NO . HEART ATTACK NO . HEART SURGERY NO . CONGESTIVE HEART FAILURE/FLUID OVERLOAD NO . CHEST PAIN NO . HIGH BLOOD PRESSURE NO . IRREGULAR HEART BEAT NO . RESPIRATORY: HAVE YOU BEEN SICK IN THE PAST WEEK? NO . FEVER NO . FLU LIKE SYMPTOMS? NO . CPAP NO . BYPAP NO . ASTHMA NO . EMPHYSEMA NO . CHRONIC LUNG DISEASES NO . SHORTNESS OF BREATH ON EXERTION NO . DO YOU USE ANY TYPE OF TOBACCO (SMOKE, SMOKELESS, CHEW)? NO . COUGH NO . SNORING NO . INTEGUMENTARY: DO YOU HAVE ANY RASHES OR OPEN SORES? NO . ALLERGIC/IMMUNO: ARE YOU ALLERGIC TO SHELLFISH OR IV DYE? NO . ANY NEW ALLERGIES? NO . PSYCHIATRIC: DO YOU HAVE THOUGHTS OF HURTING YOURSELF OR SOMEONE ELSE? NO . ARE YOU ABUSED, NEGLECTED, OR IN AN UNSAFE ENVIRONMENT? NO . ENDOCRINOLOGY: ARE YOU DIABETIC? NO . THYROID DISORDER NO . OTHER: DO YOU NEED ANY PRESCRIPTIONS? NO . IF YES, PLEASE LIST: ____ . ANY NEW PROBLEMS WITH YOUR MEDICATIONS? NO . WHEN DID YOU LAST EAT? ____ . WHEN DID YOU LAST DRINK? ____ . WHAT DID YOU LAST DRINK? ____ . NAME OF PERSON DRIVING YOU HOME? ____ . DO YOU HAVE ANY OTHER QUESTIONS OR CONCERNS NO . SKIN: DRY SKIN EXCEMA BEHIND EARS - PREVIOUSLY ON CREAMS . REVIEWED BY: PROVIDER: ANDREA MOLINA . VITAL SIGNS WT 227 LBS, HT 57 IN, BMI 49.12 INDEX, BP 128/77 MM HG, HR 59 /MIN, RR 16 /MIN, TEMP 98.0 F, OXYGEN SAT % 98, NA INITIALS AW 1351, REVIEWED BY: CS. EXAMINATION GENERAL EXAMINATION: PSYCHALERT , ORIENTED X 3 , APPROPRIATE MOOD AND AFFECT , GOOD EYE CONTACT, SMILING AND TALKATIVE. HEENT:NORMOCEPHALIC, NO LYMPHADENOPATHY, NO THYROMEGLY. LUNGS:CLEAR TO AUSCULTATION BILATERALLY, NO WHEEZES, RALES OR RHONCHI. HEART:NORMAL S1S2, NO MURMURS, CLICK OR RUBS. MUSCULOSKELETAL:MUSCLE STRENGTH TESTING 5-/5 LEFT LLOWER EEXTREMITY, 5/5 RIGHT LOWER EXTREMITY. SOME DIFFICULTY WITH RISING TO HEEL AND TOE. PAIN IN CALF BILAT WITH SLR AT 20 DEGREES. IS ABLE TO FLEX SPINE FLEX TO 45 DEGREES, , EXTEND SPINE TO 10 DEGREES, ROTATE LEFT >RIGHT. POSTURE UPRIGHT, NONANTALGIC. TENDER WITH PALPATION OVER LUMBAR SPINOUS PROCESSES. SPECIFIC TENDERNESS WITH PALPATION OVER LEFT LATERAL KNEE AND CALF. NEUROLOGIC EXAM:DTR'S TRACE-1+ BILATERAL LOWER EXTREMITIES, PLANTAR RESPONSE IS FLEXOR. DECRAESED SENSATION LEFT LATERAL CALF, MEDIAL LEFT THIGH, LATERAL LEFT FOOT. ASSESSMENTS LUMBAR POST-LAMINECTOMY SYNDROME - M96.1 (PRIMARY) LUMBAR RADICULOPATHY - M54.16 LUMBAR DISC DISPLACEMENT WITHOUT MYELOPATHY - M51.26 TREATMENT LUMBAR POST-LAMINECTOMY SYNDROME LAB: COMPREHENSIVE METABOLIC PROFILE LAB: ERYTHROCYTE SEDIMENTATION RATE LAB: [id number] LAB: RHEUMATOID FACTOR QUANT LAB: [facility] MRI LS SPINE W/O AND WITH [id number],SUSAN M 11/30/2016 2:54:25 PM > POST LUMBAR LAMI X 3 WITH NEW LEFT LE RADICULOPATHY NOTES: RESTART EXERCISE AND STRETCHES PER PHYSICAL THERAPY. USE BALANCE BALL FOR LOWER EXTREMITY STRENGTHENING AND ABDOMENAL WALL SUPPORT. DISPOSITION & COMMUNICATION FOLLOW UP 1 MONTH (REASON: CHECK AUTH FOR MRI W/WO CONTRAST LUMBAR) ELECTRONICALLY SIGNED BY VERONICA LU ON 12/08/2016 AT 08:41 AM EDT DISCLAIMER : THIS IS A VISIT SUMMARY EXTRACTED FROM THE [employer] CHART. IT IS NOT A COPY OF THE [employer] PROGRESS NOTE. MTDD
== END ==
LOC: M PAIN 13:20
PROVIDERS: ATTEND Nurse Practitioner Family
DX: M96.1 Postlaminectomy syndrome, not elsewhere classified (principal); M54.16 Radiculopathy, lumbar region; M51.26 Other intervertebral disc displacement, lumbar region; Z88.0 Allergy status to penicillin; Z79.899 Other long term (current) drug therapy

== ENCOUNTER → 2016-12-21 | Outpatient (CLI) | payer OTHER ==
--- NOTE | 2016-12-21 12:33 | REP ---
MRI LUMBAR SPINE WITHOUT AND WITH CONTRAST: HISTORY: Back pain. CONTRAST: ProHance 20 mL. COMPARISON: 09/23/2016. A diffuse disc bulge and small central disc protrusion are present at the L1-2 level. There is mild compression of the thecal sac. The L1 nerves exit the neural foramina without compression. A diffuse disc bulge and small disc extrusion central and eccentric to the left are present at the L2-3 level. There is inferior migration of disc material. There is minimal compression of the thecal sac and left L3 nerve as it exits the thecal sac. There is hypertrophy of the posterior articulating facets. The L2 nerves exit the neural foramina without compression. A left laminectomy defect is present. A diffuse disc bulge and mild sized disc extrusion central and eccentric to the left are present at the L3-4 level. There is mild compression of the thecal sac and left L4 nerve as it exits the thecal sac. There is hypertrophy of the posterior articulating facets. The L3 nerves exit the neural foramina without compression. A left laminectomy defect is present. A diffuse disc bulge and moderate size left paracentral disc extrusion are present at the L4-5 level. The disc extrusion is increased in size. There is inferior migration of disc material. There is mild compression of the thecal sac and left L5 nerve as it exits the thecal sac and in the left L5 lateral recess. There is hypertrophy of the posterior articulating facets. The L4 nerves exit the neural foramina without compression. A left laminectomy defect is present. Enhancing scar tissue is present at the laminectomy site and in the left lateral aspect of the spinal canal. The scar tissues involves the left L5 nerve. A diffuse disc bulge and small left paracentral disc protrusion are present at the L5-S1 level. There is minimal compression of the thecal sac and left S1 nerve as it exits the thecal sac. There is hypertrophy of the posterior articulating facets. The L5 nerves exit the neural foramina without compression. A left laminectomy defect is present. The conus medullaris is normal in appearance terminating at the level of the T12-L1 intervertebral disc. Increased signal intensity on T2-weighted images is present in the superior end plate of the L5 vertebral body. This represents degenerative change. IMPRESSION: 1. Diffuse disc bulge and small central disc protrusion at the L1-2 level with mild thecal sac compression. 2. Diffuse disc bulge and small disc extrusion at the L2-3 level with mild compression of the thecal sac and left L3 nerve as it exits the thecal sac. 3. Diffuse disc bulge and mild sized disc extrusion at the L3-4 level with mild compression of the thecal sac and left L4 nerve as it exits the thecal sac. . A left laminectomy defect is present. 4. Diffuse disc bulge and moderate size disc extrusion at the L4-5 level with mild compression of the thecal sac and left L5 nerve as it exits the thecal sac. The disc extrusion is increased in size. Scar tissue involves the left L5 nerve. 5. Diffuse disc bulge and small disc protrusion at the L5-S1 level with minimal compression of the thecal sac and left S1 nerve as it exits the thecal sac. A left laminectomy defect is present. There is no other significant change. Signed by Patrick Tripathi MD 12/21/2016 12:40 P
== END ==
LOC: M RAD 09:51
PROVIDERS: ATTEND Nurse Practitioner Family
DX: M96.1 Postlaminectomy syndrome, not elsewhere classified (principal)
CPT/HCPCS: 72158; A9576

== ENCOUNTER → 2016-12-28 | Outpatient (CLI) | payer OTHER ==
--- NOTE | 2017-01-18 00:03 | ECWPNPC ---
PATIENT NAME: JAY HORTON : 1990 GENDER: FEMALE VISIT DATE: 12/28/2016 DISCHARGE DATE: 12/28/16 1443 VISIT LOCKED DATE TIME: PHYSICIAN: ANDREA MELGOZA RESOURCE: ANDREA MELGOZA REASON FOR APPOINTMENT 1. BACK PAIN/MRI HISTORY OF PRESENT ILLNESS HISTORY OF PRESENT ILLNESS: PAIN THE PATIENT DESCRIBES THE PAIN... FALL RISK SCREENING: SCREENING :NO FALLS IN THE PAST YEAR TODAY'S VISIT: NOTES: RETURNS TODAY FOR FOLLOWUP WITH COMPLETION OF UPDATED MRI OF LUMBAR SPINE WITH CONTRAST COMPLETED ON 12/21/16. RATES PAIN LEVEL TODAY 3/10. DESCRIBES PAIN ACHING. NOTES PAIN CENTERD ACROSS THE BACK AND TO BOTH LATERAL THOGHS. IS NOTING THE MOST DISCOMFORT WITH STANDING. SLEEP IS FAIR. NO DIFF WITH B/B. CURRENT MEDICATIONS TAKING BACLOFEN 10 MG TABLET 1 TABLET WITH FOOD OR MILK ORALLY THREE TIMES A DAY TAKING MELOXICAM 15 MG TABLET 1 TABLET ORALLY ONCE A DAY NOT-TAKING GUMMI BEAR MULTIVITAMIN/MIN NOT-TAKING LIDOCAINE HCL 20 MG/ML SOLUTION 10 ML MOUTH/THROAT EVERY 3 HRS MEDICATION LIST REVIEWED AND RECONCILED WITH THE PATIENT PAST MEDICAL HISTORY BACK PAIN ALLERGIES PENICILLIN (FOR ALLERGIES USE ONLY): HIVES: ALLERGY SURGICAL HISTORY BACK SURGERY 2009, 2010, AND 2015 CHOLECYSTECTOMY 01/2013 C-SECTIONS 12/2013 AND 05/2016 REVIEW OF SYSTEMS CONSTITUTIONAL: ANY CHANGE IN YOUR MEDICAL CONDITION? NO . CHILLS NO . FEVER NO . INFECTION: DO YOU HAVE NEW INFECTIONS? NO . DO YOU HAVE HISTORY OF MRSA? NO . MUSCULOSKELETAL: ANY NEW PATTERNS OF PAIN OR NUMBNESS? NO . GASTROENTEROLOGY: ANY NEW CHANGE IN BOWEL CONTROL? NO . GENITOURINARY: ANY NEW CHANGE IN BLADDER CONTROL? NO . IS THERE A CHANCE YOU COULD BE ? YES . HEMATOLOGY/LYMPH: DO YOU TAKE ANY BLOOD THINNERS? (FOR EXAMPLE- COUMADIN, PLAVIX, AGGRENOX, PLATEL, PRADAXA, OR XARELTO) NO . WHEN WAS YOUR LAST DOSE? DATE: TIME: . NEUROLOGY: HAVE YOU FALLEN IN THE PAST 6 MONTHS? YES . ANY NEW EXTREMITY NUMBNESS OR WEAKNESS? NO . CARDIOLOGY: DO YOU HAVE A PACEMAKER OR DEFIBRILLATOR? NO . RESPIRATORY: HAVE YOU BEEN SICK IN THE PAST WEEK? YES . FEVER NO . FLU LIKE SYMPTOMS? NO . COUGH YES NON PRODUCTIVE . INTEGUMENTARY: DO YOU HAVE ANY RASHES OR OPEN SORES? NO . ALLERGIC/IMMUNO: ARE YOU ALLERGIC TO SHELLFISH OR IV DYE? NO . ANY NEW ALLERGIES? NO . PSYCHIATRIC: DO YOU HAVE THOUGHTS OF HURTING YOURSELF OR SOMEONE ELSE? NO . ARE YOU ABUSED, NEGLECTED, OR IN AN UNSAFE ENVIRONMENT? NO . ENDOCRINOLOGY: ARE YOU DIABETIC? NO . OTHER: DO YOU NEED ANY PRESCRIPTIONS? YES . IF YES, PLEASE LIST: ____MELOXICAM, BACLOFEN . ANY NEW PROBLEMS WITH YOUR MEDICATIONS? NO . WHEN DID YOU LAST EAT? ____ . WHEN DID YOU LAST DRINK? ____ . WHAT DID YOU LAST DRINK? ____ . NAME OF PERSON DRIVING YOU HOME? ____ . DO YOU HAVE ANY OTHER QUESTIONS OR CONCERNS NO . REVIEWED BY: PROVIDER: ANDREA MOLINA . VITAL SIGNS WT 228 LBS, HT 57 IN, BMI 49.33 INDEX, BP 136/90 MM HG, HR 77 /MIN, RR 16 /MIN, TEMP 97.5 F, OXYGEN SAT % 97%, NA INITIALS SC 14:10, REVIEWED BY: CL. EXAMINATION GENERAL EXAMINATION: PSYCHALERT , ORIENTED X 3 , APPROPRIATE MOOD AND AFFECT. HEENT:NORMOCEPHALIC, NO LYMPHADENOPATHY, NO THYROMEGLY. LUNGS:CLEAR TO AUSCULTATION BILATERALLY, NO WHEEZES, RALES OR RHONCHI. HEART:HEART RATE REGULAR. MUSCULOSKELETAL:MUSCLE STRENGTH TESTING 5-/5 LEFT LLOWER EEXTREMITY, 5/5 RIGHT LOWER EXTREMITY. POSTURE UPRIGHT, NONANTALGIC. TENDER WITH PALPATION OVER LUMBAR SPINOUS PROCESSES. SPECIFIC TENDERNESS WITH PALPATION OVER LEFT LATERAL KNEE AND CALF. NEUROLOGIC EXAM:DTR'S TRACE-1+ BILATERAL LOWER EXTREMITIES,. DIAGNOSTIC TESTS REVIEWEDMRI OF LUMBAR SPINE COMPLETED ON 12/21/16 REVIEWED. DISC EXTRUSIONS NOTED AT L2-3, L3-4, L4-5 AND SMALL DISC PROTTRUSION AT L5-S1 WITH MINIMAL COMPRESSION OF THE THECAL SAC AND LEFT S1 NERVE NOTED. THE DISC EXTRUSION AT L4-5 NOTED TO BE INCREASED IN SIZE. ASSESSMENTS LUMBAR POST-LAMINECTOMY SYNDROME - M96.1 (PRIMARY) LUMBAR RADICULOPATHY - M54.16 LUMBAR DISC DISPLACEMENT WITHOUT MYELOPATHY - M51.26 TREATMENT LUMBAR POST-LAMINECTOMY SYNDROME REFILL MELOXICAM TABLET, 15 MG, 1 TABLET, ORALLY, ONCE A DAY, 30 DAY(S), 30 TABLET, REFILLS 3 REFILL BACLOFEN TABLET, 10 MG, 1 TABLET WITH FOOD OR MILK, ORALLY, THREE TIMES A DAY, 30 DAY(S), 90 TABLET, REFILLS 3 NOTES: CONTINUE CURRENT MEDS. WALK EVERY DAY. [facility] RE[facility]:NEW L4 DISC EXTRUSION WITH INFERIOR MIGRAIN OF DISC MATERIAL - S/P LAMI PROCEDURE CODES FA211 ESTABILISHED PATIENT [facility] CHARGE DISPOSITION & COMMUNICATION FOLLOW UP 2 MONTHS ELECTRONICALLY SIGNED BY VERONICA LU ON 01/17/2017 AT 03:40 PM EDT DISCLAIMER : THIS IS A VISIT SUMMARY EXTRACTED FROM THE [employer] CHART. IT IS NOT A COPY OF THE [employer] PROGRESS NOTE. TANIA
== END ==
LOC: M PAIN 14:00
PROVIDERS: ATTEND Nurse Practitioner Family
DX: M96.1 Postlaminectomy syndrome, not elsewhere classified (principal); M54.16 Radiculopathy, lumbar region; M51.26 Other intervertebral disc displacement, lumbar region; Z88.0 Allergy status to penicillin; Z79.899 Other long term (current) drug therapy

== ENCOUNTER → 2017-03-24 | Outpatient (CLI) | payer OTHER ==
--- NOTE | 2017-04-14 00:51 | ECWPNPC ---
PATIENT NAME: JAY HORTON : 1990 GENDER: FEMALE VISIT DATE: 03/24/2017 DISCHARGE DATE: 03/24/17 1602 VISIT LOCKED DATE TIME: PHYSICIAN: ANDREA MELGOZA RESOURCE: ANDREA MELGOZA HISTORY OF PRESENT ILLNESS HISTORY OF PRESENT ILLNESS: PAIN THE PATIENT DESCRIBES THE PAIN... FALL RISK SCREENING: SCREENING :NO FALLS IN THE PAST YEAR TODAY'S VISIT: NOTES: RATES PAIN LEVEL TODAY 6/10. DESCRIBES PAIN CONSTANT, STABBING, AND SHOOTING. PAIN IS CENTERED IN LOW BACK WITH RADIATION TO LEFT LEG. HAD A TRIP AND FALL FEW WEEKS AGO. OVER THIS LAST WEEK PAIN HAS INCREASED. PAIN IS THE SAME BEFORE SURGERY 07/07. NO LOSS OF BOWEL OR BLADDER CONTROL. LEGS GO NUMB WHEN STEATED WITH LEGS HANGING. STABBING PAIN IN LOW BACK DOWN LEG WHEN ON TOILET. ABLE TO WALK WITHOUT WEAKNESS. SLEEP IS DISRUPTED WITH SHARP PAIN. CURRENT MEDICATIONS TAKING MELOXICAM 15 MG TABLET 1 TABLET ORALLY ONCE A DAY TAKING BACLOFEN 10 MG TABLET 1 TABLET WITH FOOD OR MILK ORALLY THREE TIMES A DAY NOT-TAKING GUMMI BEAR MULTIVITAMIN/MIN NOT-TAKING LIDOCAINE HCL 20 MG/ML SOLUTION 10 ML MOUTH/THROAT EVERY 3 HRS MEDICATION LIST REVIEWED AND RECONCILED WITH THE PATIENT PAST MEDICAL HISTORY BACK PAIN ALLERGIES PENICILLIN (FOR ALLERGIES USE ONLY): HIVES: ALLERGY SURGICAL HISTORY BACK SURGERY 2009, 2010, AND 2015 CHOLECYSTECTOMY 01/2013 C-SECTIONS 12/2013 AND 05/2016 REVIEW OF SYSTEMS REVIEWED BY: PROVIDER: ANDREA MELOGZA MANAGER DATABASE . CONSTITUTIONAL: ANY CHANGE IN YOUR MEDICAL CONDITION? NO . CHILLS NO . FEVER NO . INFECTION: DO YOU HAVE NEW INFECTIONS? NO . DO YOU HAVE HISTORY OF MRSA? NO . MUSCULOSKELETAL: ANY NEW PATTERNS OF PAIN OR NUMBNESS? NO . GASTROENTEROLOGY: ANY NEW CHANGE IN BOWEL CONTROL? NO . GENITOURINARY: ANY NEW CHANGE IN BLADDER CONTROL? NO . IS THERE A CHANCE YOU COULD BE ? NO . HEMATOLOGY/LYMPH: DO YOU TAKE ANY BLOOD THINNERS? (FOR EXAMPLE- COUMADIN, PLAVIX, AGGRENOX, PLATEL, PRADAXA, OR XARELTO) NO . WHEN WAS YOUR LAST DOSE? DATE: TIME: . NEUROLOGY: HAVE YOU FALLEN IN THE PAST 6 MONTHS? YES, PT STATES SHE TRIPPED OVER INFANT WALKER, PT DENIES INJURIES REQUIRING MEDICAL ATTENTION . ANY NEW EXTREMITY NUMBNESS OR WEAKNESS? NO . CARDIOLOGY: DO YOU HAVE A PACEMAKER OR DEFIBRILLATOR? NO . RESPIRATORY: HAVE YOU BEEN SICK IN THE PAST WEEK? NO . FEVER NO . FLU LIKE SYMPTOMS? NO . COUGH NO . INTEGUMENTARY: DO YOU HAVE ANY RASHES OR OPEN SORES? NO . ALLERGIC/IMMUNO: ARE YOU ALLERGIC TO SHELLFISH OR IV DYE? NO . ANY NEW ALLERGIES? NO . PSYCHIATRIC: DO YOU HAVE THOUGHTS OF HURTING YOURSELF OR SOMEONE ELSE? NO . ARE YOU ABUSED, NEGLECTED, OR IN AN UNSAFE ENVIRONMENT? NO . ENDOCRINOLOGY: ARE YOU DIABETIC? NO . OTHER: DO YOU NEED ANY PRESCRIPTIONS? NO . IF YES, PLEASE LIST: ____ . ANY NEW PROBLEMS WITH YOUR MEDICATIONS? NO . WHEN DID YOU LAST EAT? ____ . WHEN DID YOU LAST DRINK? ____ . WHAT DID YOU LAST DRINK? ____ . NAME OF PERSON DRIVING YOU HOME? ____ . DO YOU HAVE ANY OTHER QUESTIONS OR CONCERNS NO . VITAL SIGNS WT 216.2 LBS, HT 57 IN, BMI 46.78 INDEX, BP 136/87 MM HG, HR 59 /MIN, RR 16 /MIN, TEMP 98.3 F, OXYGEN SAT % 97%, NA INITIALS SC 15:28, REVIEWED BY: LEONA. EXAMINATION GENERAL EXAMINATION: PSYCHALERT , ORIENTED X 3 , APPROPRIATE MOOD AND AFFECT. LUNGS:CLEAR TO AUSCULTATION BILATERALLY, NO WHEEZES, RALES OR RHONCHI. HEART:HEART RATE REGULAR. MUSCULOSKELETAL:MUSCLE STRENGTH TESTING 5-/5 LEFT LLOWER EEXTREMITY, 5/5 RIGHT LOWER EXTREMITY. POSTURE UPRIGHT, NONANTALGIC. TENDER WITH PALPATION OVER LUMBAR SPINOUS PROCESSES. SPECIFIC TENDERNESS WITH PALPATION OVER LEFT LATERAL KNEE AND CALF. ASSESSMENTS LUMBAR POST-LAMINECTOMY SYNDROME - M96.1 (PRIMARY) LUMBAR RADICULOPATHY - M54.16 LUMBAR DISC DISPLACEMENT WITHOUT MYELOPATHY - M51.26 TREATMENT LUMBAR POST-LAMINECTOMY SYNDROME START PREDNISONE TABLET, 20 MG, 1 TABLET, ORALLY, TAKE 1 TAB TWICE A DAY X 3 DAYS AND THEN 1/2 TAB TWICE A DAY X 3 DAYS, 7 DAY(S), 9, REFILLS 0 LAB: RENAL PROFILE [facility] MRI LS SPINE W/O AND WITH [id number],SUSAN M 03/24/2017 3:51:47 PM > INCREASED PAIN POST TRAUMA WITH RADICULAR SYMPTOMS DISPOSITION & COMMUNICATION FOLLOW UP 1 WEEK AFTER MRI (REASON: CHECK AUTH FOR MRI) ELECTRONICALLY SIGNED BY VERONICA LU ON 04/13/2017 AT 06:57 PM EDT DISCLAIMER : THIS IS A VISIT SUMMARY EXTRACTED FROM THE [employer] CHART. IT IS NOT A COPY OF THE [employer] PROGRESS NOTE. DEVEND
== END ==
LOC: M PAIN 14:20
PROVIDERS: ATTEND Nurse Practitioner Family
DX: M96.1 Postlaminectomy syndrome, not elsewhere classified (principal); M54.16 Radiculopathy, lumbar region; M51.26 Other intervertebral disc displacement, lumbar region; Z88.0 Allergy status to penicillin; Z79.899 Other long term (current) drug therapy

== ENCOUNTER → 2017-04-07 | Outpatient (CLI) | payer OTHER ==
--- NOTE | 2017-04-23 00:17 | ECWPNPC ---
PATIENT NAME: JAY HORTON : 1990 GENDER: FEMALE VISIT DATE: 04/07/2017 DISCHARGE DATE: 04/07/17 1622 VISIT LOCKED DATE TIME: PHYSICIAN: ANDREA MELGOZA RESOURCE: ANDREA MELGOZA REASON FOR APPOINTMENT 1. POST MRI HISTORY OF PRESENT ILLNESS HISTORY OF PRESENT ILLNESS: PAIN THE PATIENT DESCRIBES THE PAIN... FALL RISK SCREENING: SCREENING :NO FALLS IN THE PAST YEAR TODAY'S VISIT: NOTES: RATES PAIN LEVEL TODAY 2/10. DESCRIBES PAIN INTERMITTANT, SHARP, STABBING AND SORE. PAIN LOCATED ACROSS LOW BACK AND INTO LEFT LEG FROM MID THIGH TO FOOT. SOME DAYS PAIN CAN ESCALATE WITH STANDING OR WITH LYING DOWN TO 8-9/10. NO INCREASE IN NUMBNESS OR WEAKNESS IN LEFT LEG. IS HAVING SOME TROUBLE WITH CONSTIPATION AT TIMES. NO FALLS. REPORTS VALIUM HAS BEEN HELPING THE MOST - TAKING ONCE PER DAY. CURRENT MEDICATIONS TAKING MELOXICAM 15 MG TABLET 1 TABLET ORALLY ONCE A DAY TAKING BACLOFEN 10 MG TABLET 1 TABLET WITH FOOD OR MILK ORALLY THREE TIMES A DAY NOT-TAKING PREDNISONE 20 MG TABLET 1 TABLET ORALLY TAKE 1 TAB TWICE A DAY X 3 DAYS AND THEN 1/2 TAB TWICE A DAY X 3 DAYS NOT-TAKING GUMMI BEAR MULTIVITAMIN/MIN NOT-TAKING LIDOCAINE HCL 20 MG/ML SOLUTION 10 ML MOUTH/THROAT EVERY 3 HRS MEDICATION LIST REVIEWED AND RECONCILED WITH THE PATIENT PAST MEDICAL HISTORY BACK PAIN ALLERGIES PENICILLIN (FOR ALLERGIES USE ONLY): HIVES: ALLERGY SOCIAL HISTORY GENERAL: TOBACCO USE ARE YOU A:CURRENT SMOKER HOW MANY CIGARETTES A DAY DO YOU SMOKE?11-20 PATIENT COUNSELED ON THE DANGERS OF TOBACCO USE AND URGED TO QUIT:11/30/2016 ARE YOU INTERESTED IN QUITTING?NOT READY TO QUIT COUNSELED THE PATIENT ON SMOKING EFFECTS, EDUCATION [id number]/11/2017 RECREATIONAL DRUG USE DRUG USE?NO CAFFEINE CAFFEINE USE?NO DIET: REGULAR. ORTHODOX [id number] NONE LANGUAGE LANGUAGES SPOKEN:ICELANDIC LEARNING BARRIERS / SPECIAL NEEDS CHANGE FROM LAST VISIT?NO BARRIERS TO LEARNING?NO HEARING IMPAIRED?NO VISION IMPAIRED?NO COGNITIVELY IMPAIRED?NO READINESS TO LEARN?YES LEARNING PREFERENCES?NO LEARNING CAPABILITIES PRESENT?YES EMOTIONAL BARRIERS?NO SPECIAL DEVICES?NO GAS MAIN AND LINE FITTER NEEDED?NO PAIN CLINIC PFS, CLERGY, PUBLIC HEALTH REFERRALS PFS REFERRAL NEEDED?NO CLERGY REFERRAL NEEDED?NO PUBLIC HEALTH REFERRAL NEEDED?NO WAS THE PROVIDER NOTIFIED OF ANY PERTINENT INFO?NO HAS THE PATIENT BEEN EDUCATED REGARDING HIS/HER PLAN OF CARE?YES HAS THE PATIENT BEEN EDUCATED REGARDING PAIN, THE RISK FOR PAIN, THE IMPORTANCE OF EFFECTIVE PAIN MANAGEMENT, AND THE PAIN ASSESSMENT PROCESS?YES PATIENT: ____. ADVANCE DIRECTIVES HEALTH CARE PROXY?NO WOULD YOU LIKE MORE INFORMATION?NO DO YOU HAVE A DNR?NO WOULD YOU LIKE MORE INFORMATION?NO LIVING WILL?NO WOULD YOU LIKE MORE INFORMATION?NO POWER OF APPLIANCE SERVICER?NO WOULD YOU LIKE MORE INFORMATION?NO REVIEW OF SYSTEMS REVIEWED BY: PROVIDER: ANDREA MOLINA . CONSTITUTIONAL: ANY CHANGE IN YOUR MEDICAL CONDITION? NO . CHILLS NO . FEVER NO . INFECTION: DO YOU HAVE NEW INFECTIONS? NO . DO YOU HAVE HISTORY OF MRSA? NO . MUSCULOSKELETAL: ANY NEW PATTERNS OF PAIN OR NUMBNESS? NO . GASTROENTEROLOGY: ANY NEW CHANGE IN BOWEL CONTROL? NO . GENITOURINARY: ANY NEW CHANGE IN BLADDER CONTROL? NO . IS THERE A CHANCE YOU COULD BE ? NO . HEMATOLOGY/LYMPH: DO YOU TAKE ANY BLOOD THINNERS? (FOR EXAMPLE- COUMADIN, PLAVIX, AGGRENOX, PLATEL, PRADAXA, OR XARELTO) NO . WHEN WAS YOUR LAST DOSE? DATE: TIME: . NEUROLOGY: HAVE YOU FALLEN IN THE PAST 6 MONTHS? YES . ANY NEW EXTREMITY NUMBNESS OR WEAKNESS? NO . CARDIOLOGY: DO YOU HAVE A PACEMAKER OR DEFIBRILLATOR? NO . RESPIRATORY: HAVE YOU BEEN SICK IN THE PAST WEEK? NO . FEVER NO . FLU LIKE SYMPTOMS? NO . COUGH NO . INTEGUMENTARY: DO YOU HAVE ANY RASHES OR OPEN SORES? NO . ALLERGIC/IMMUNO: ARE YOU ALLERGIC TO SHELLFISH OR IV DYE? NO . ANY NEW ALLERGIES? NO . PSYCHIATRIC: DO YOU HAVE THOUGHTS OF HURTING YOURSELF OR SOMEONE ELSE? NO . ARE YOU ABUSED, NEGLECTED, OR IN AN UNSAFE ENVIRONMENT? NO . ENDOCRINOLOGY: ARE YOU DIABETIC? NO . OTHER: DO YOU NEED ANY PRESCRIPTIONS? NO . IF YES, PLEASE LIST: ____ . ANY NEW PROBLEMS WITH YOUR MEDICATIONS? NO . WHEN DID YOU LAST EAT? ____ . WHEN DID YOU LAST DRINK? ____ . WHAT DID YOU LAST DRINK? ____ . NAME OF PERSON DRIVING YOU HOME? ____ . DO YOU HAVE ANY OTHER QUESTIONS OR CONCERNS NO . VITAL SIGNS WT 214.4 LBS, HT 57 IN, BMI 46.39 INDEX, BP 117/70 MM HG, HR 60 /MIN, RR 16 /MIN, TEMP 97.3 F, OXYGEN SAT % 98%, NA INITIALS SC 15:21, REVIEWED BY: GOSIA. EXAMINATION GENERAL EXAMINATION: PSYCHALERT , ORIENTED X 3 , APPROPRIATE MOOD AND AFFECT. LUNGS:CLEAR TO AUSCULTATION BILATERALLY, NO WHEEZES, RALES OR RHONCHI. HEART:HEART RATE REGULAR. MUSCULOSKELETAL:MUSCLE STRENGTH TESTING 5-/5 LEFT LLOWER EEXTREMITY, 5/5 RIGHT LOWER EXTREMITY. POSTURE UPRIGHT, NONANTALGIC. TENDER WITH PALPATION OVER LUMBAR SPINOUS PROCESSES. SPECIFIC TENDERNESS WITH PALPATION OVER LEFT LATERAL KNEE AND CALF. ASSESSMENTS LUMBAR POST-LAMINECTOMY SYNDROME - M96.1 (PRIMARY) LUMBAR RADICULOPATHY - M54.16 LUMBAR DISC DISPLACEMENT WITHOUT MYELOPATHY - M51.26 TREATMENT LUMBAR POST-LAMINECTOMY SYNDROME CAUDAL/LUMBAR EPIDURAL NOTES: WALK EVERY DAY TRY TO INCREASE DISTANCE. TRY TO SWIM. CALL SOS FOR RE-EVAL - TAKE MRI DISC,. PREVENTIVE MEDICINE PAIN CLINIC TEACHING: PROCEDURE TEACHING PRE-PROCEDURE TEACHING DONE. QUESTIONS ANSWERED. ADDITIONAL CAUDAL EPIDURAL STEROID INJECTION INFORMATION GIVEN TO PATIENT. PATIENT VERBALIZES UNDERSTANDING.. PROCEDURE CODES FA211 ESTABILISHED PATIENT [facility] FACILITY CHARGE DISPOSITION & COMMUNICATION FOLLOW UP AFTER INJECTION (REASON: CHECK AUTH FOR CAUDAL EPIDURAL) ELECTRONICALLY SIGNED BY VERONICA LU ON 04/22/2017 AT 07:11 PM EDT DISCLAIMER : THIS IS A VISIT SUMMARY EXTRACTED FROM THE [employer] CHART. IT IS NOT A COPY OF THE [employer] PROGRESS NOTE. TANIA
== END ==
LOC: M PAIN 14:45
PROVIDERS: ATTEND Nurse Practitioner Family
DX: M96.1 Postlaminectomy syndrome, not elsewhere classified (principal); M54.16 Radiculopathy, lumbar region; M51.26 Other intervertebral disc displacement, lumbar region; F17.210 Nicotine dependence, cigarettes, uncomplicated; Z88.0 Allergy status to penicillin; Z79.899 Other long term (current) drug therapy

== ENCOUNTER → 2017-05-11 | Outpatient (CLI) | payer OTHER ==
[~2017-05-11] MED LIST: ISOVUE-M 300 61% 15ML VIAL (Q9967) As Ordered ONE; LIDOCAINE 1% SDV INJ 30 ML VIAL As Ordered ONE; diazePAM 5 MG TAB As Ordered ONE; methylPREDNISolone SUSP 40 MG/ML (DEPO-medrol) VIAL (J1030) As Ordered ONE; oxyCODONE 5MG TAB As Ordered ONE
--- NOTE | 2017-05-12 00:06 | ECWPNPC ---
PATIENT NAME: JAY HORTON : 1990 GENDER: FEMALE VISIT DATE: 05/11/2017 DISCHARGE DATE: 05/11/17 1219 VISIT LOCKED DATE TIME: PHYSICIAN: CHON HAWKINS RESOURCE: CHON HAWKINS REASON FOR APPOINTMENT 1. CAUDAL EPIDURAL HISTORY OF PRESENT ILLNESS HISTORY OF PRESENT ILLNESS: PAIN THE PATIENT DESCRIBES THE PAIN... FALL RISK SCREENING: SCREENING :NO FALLS IN THE PAST YEAR CURRENT MEDICATIONS TAKING MELOXICAM 15 MG TABLET 1 TABLET ORALLY ONCE A DAY, NOTES: 05/10/17 0900 TAKING BACLOFEN 10 MG TABLET 1 TABLET WITH FOOD OR MILK ORALLY THREE TIMES A DAY, NOTES: 05/10/17 1745 NOT-TAKING PREDNISONE 20 MG TABLET 1 TABLET ORALLY TAKE 1 TAB TWICE A DAY X 3 DAYS AND THEN 1/2 TAB TWICE A DAY X 3 DAYS NOT-TAKING GUMMI BEAR MULTIVITAMIN/MIN NOT-TAKING LIDOCAINE HCL 20 MG/ML SOLUTION 10 ML MOUTH/THROAT EVERY 3 HRS MEDICATION LIST REVIEWED AND RECONCILED WITH THE PATIENT PAST MEDICAL HISTORY BACK PAIN ALLERGIES PENICILLIN (FOR ALLERGIES USE ONLY): HIVES: ALLERGY REVIEW OF SYSTEMS REVIEWED BY: PROVIDER: . CONSTITUTIONAL: ANY CHANGE IN YOUR MEDICAL CONDITION? NO . CHILLS NO . FEVER NO . INFECTION: DO YOU HAVE NEW INFECTIONS? NO . DO YOU HAVE HISTORY OF MRSA? NO . MUSCULOSKELETAL: ANY NEW PATTERNS OF PAIN OR NUMBNESS? NO . GASTROENTEROLOGY: ANY NEW CHANGE IN BOWEL CONTROL? NO . GENITOURINARY: ANY NEW CHANGE IN BLADDER CONTROL? NO . IS THERE A CHANCE YOU COULD BE ? NO . HEMATOLOGY/LYMPH: DO YOU TAKE ANY BLOOD THINNERS? (FOR EXAMPLE- COUMADIN, PLAVIX, AGGRENOX, PLATEL, PRADAXA, OR XARELTO) NO . WHEN WAS YOUR LAST DOSE? DATE: TIME: . NEUROLOGY: HAVE YOU FALLEN IN THE PAST 6 MONTHS? YES PT REPORTS SHE TRIPPED OVER A TOY AND FELL, NO ED OR MD VISIT . ANY NEW EXTREMITY NUMBNESS OR WEAKNESS? NO . CARDIOLOGY: DO YOU HAVE A PACEMAKER OR DEFIBRILLATOR? NO . RESPIRATORY: HAVE YOU BEEN SICK IN THE PAST WEEK? NO . FEVER NO . FLU LIKE SYMPTOMS? NO . COUGH NO . INTEGUMENTARY: DO YOU HAVE ANY RASHES OR OPEN SORES? NO . ALLERGIC/IMMUNO: ARE YOU ALLERGIC TO SHELLFISH OR IV DYE? NO . ANY NEW ALLERGIES? NO . PSYCHIATRIC: DO YOU HAVE THOUGHTS OF HURTING YOURSELF OR SOMEONE ELSE? NO . ARE YOU ABUSED, NEGLECTED, OR IN AN UNSAFE ENVIRONMENT? NO . ENDOCRINOLOGY: ARE YOU DIABETIC? NO . OTHER: DO YOU NEED ANY PRESCRIPTIONS? NO . IF YES, PLEASE LIST: ____ . ANY NEW PROBLEMS WITH YOUR MEDICATIONS? NO . WHEN DID YOU LAST EAT? ____05/10/172199 . WHEN DID YOU LAST DRINK? ____05/10/172199 . WHAT DID YOU LAST DRINK? ____WATER . NAME OF PERSON DRIVING YOU HOME? ____NICHOLAS . DO YOU HAVE ANY OTHER QUESTIONS OR CONCERNS NO . VITAL SIGNS WT 215 LBS, HT 57 IN, BMI 46.52 INDEX, BP 123/72 MM HG, HR 50 /MIN, RR 16 /MIN, TEMP 98.7 F, OXYGEN SAT % 97%, SAFE IN ENV? (Y/N) YES, NA INITIALS IN 10:21, REVIEWED BY: ASSESSMENTS INTERVERTEBRAL DISC DISORDER WITH RADICULOPATHY OF LUMBOSACRAL REGION - M51.17 (PRIMARY) PROCEDURES PN CAUDAL EPIDURALS PRE PROCEDURE DIAGNOSIS LUMBAR POST LAMINECTOMY PAIN SYNDROME INTERVERTEBRAL DISC DISORDER WITH RADICULOPATHY OF LUMBOSACRAL REGION POST PROCEDURE DIAGNOSIS LUMBAR POST LAMINECTOMY PAIN SYNDROME INTERVERTEBRAL DISC DISORDER WITH RADICULOPATHY OF LUMBOSACRAL REGION PROCEDURE CAUDAL EPIDURAL STEROID INJECTION UNDER FLUOROSCOPIC GUIDANCE SURGEON DR. CHON HAWKINS STEEL DETAILER NONE ANESTHESIA LOCAL PRE PROCEDURE NOTE THE PATIENT HAS HISTORY OF CHRONIC LOW BACK PAIN. I EVALUATE THE PATIENT AND REVIEWED THE CHART. I WENT OVER THE RISKS, ALTERNATIVES, AND BENEFITS ASSOCIATED WITH THIS PROCEDURE. THE PATIENT WOULD LIKE TO PROCEED AND GIVE CONSENT TO PERFORMED THE PROCEDURE. THE PATIENT DENIES UNEXPLAINABLE WEIGHT LOSS, FEVER, CHILLS, OR NEW CHANGES IN URINARY OR BOWEL CONTROL. DESCRIPTION OF PROCEDURE THE PATIENT WAS BROUGHT TO THE PROCEDURE ROOM AND PLACED IN THE PRONE POSITION. THE LUMBOSACRAL AREA WAS CLEANED WITH BETADINE SOLUTION AND DRAPED ASEPTICALLY. THE PROCEDURE WAS DONE UNDER STERILE CONDITIONS. I CHECKED LATERALITY AND THE LEVEL WHERE THE PROCEDURE WAS GOING TO BE PERFORMED WITH THE PATIENT AND THE SUPPORTING STAFF AT THE MOMENT OF THE TIME OUT IN THE PROCEDURE ROOM. UNDER FLUOROSCOPIC GUIDANCE, THE TARGET POINT WAS SELECTED AT THE EPIDURAL SPACE BELOW THE SACROCOCCYGEAL LIGAMENT. LIDOCAINE 0.5% WAS USE TO NUMB THE SKIN AND THE SUBCUTANEOUS TISSUE BELOW IT. AN EPIDURAL TUOHY NEEDLE, 17-GAUGE, WAS ADVANCED UNDER FLUOROSCOPIC GUIDANCE AND FOLLOWING PATIENT FEEDBACK UNTIL THE EPIDURAL SPACE WAS REACHED 6 CM DEEP INTO THE SKIN BY THE LOSS OF RESISTANCE TECHNIQUE. ISOVUE M DYE 30%, 0.25 ML, WAS INJECTED SHOWING ADEQUATE SPREAD OF THE DYE. THEN, A SOLUTION OF 6 ML OF NORMAL SALINE WITH DEPO-MEDROL 60 MG WAS INJECTED SLOWLY FOLLOWING THE PATIENT FEEDBACK. THERE WAS NO EVIDENCE OF BLOOD, PARESTHESIA OR CEREBROSPINAL FLUID DURING THE PROCEDURE. THE PATIENT WAS SENT TO THE RECOVERY ROOM. THE PATIENT WAS MOVING THE EXTREMITIES AND DOING WELL. THERE WAS NO COMPLICATION DURING THE PROCEDURE. FLUOROSCOPY TIME WAS 11 SECONDS POST PROCEDURE NOTE THE PATIENT WILL BE SEEN IN A FOLLOW UP IN THE NEXT FEW WEEKS. INSTRUCTIONS WERE GIVEN, QUESTIONS WERE ANSWERED, AND THE PATIENT EXPRESSED UNDERSTANDING AND AGREES WITH THE PLAN. I, EUGENIE WYATT, DOCUMENTED THE ABOVE INFORMATION ACTING A SCRIBE FOR DR. HAWKINS. I HAVE REVIEWED THE ABOVE DOCUMENT, WRITTEN BY EUGENIE MACKEY AND I VERIFY THAT IT IS ACCURATE DIAGNOSTIC IMAGING [facility] FLUORO GUIDE SPINE INJECTION (PAIN)[id number] PROCEDURE CODES 11655 LUMBAR/SACRAL W/ IMAGING 6045F RADXPS IN END [id number] DISPOSITION & COMMUNICATION FOLLOW UP 3 WEEKS ELECTRONICALLY SIGNED BY CHON HAWKINS MD ON 05/11/2017 AT 09:27 PM EDT DISCLAIMER : THIS IS A VISIT SUMMARY EXTRACTED FROM THE [facility] CHART. IT IS NOT A COPY OF THE [facility] [facility] PROGRESS NOTE. MTDD
--- NOTE | 2017-05-12 16:52 | REP ---
Partial coccyx series: Single view. History: Caudal epidural for pain. 10 seconds of fluoroscopy time is reported. Findings: A single last image hold fluoroscopic spot radiograph of the coccyx documents needle position and contrast injection associated with injection procedure. Signed by Mike Spencer MD 05/12/2017 06:03 P
== END ==
LOC: M PAIN 10:15
PROVIDERS: ATTEND Anesthesiology
DX: G89.29 Other chronic pain (principal); M51.17 Intervertebral disc disorders with radiculopathy, lumbosacral region; Z88.0 Allergy status to penicillin; Z79.899 Other long term (current) drug therapy
CPT/HCPCS: 62323; J1030; Q9967

== ENCOUNTER → 2017-07-21 | Outpatient (CLI) | payer OTHER ==
--- NOTE | 2017-08-20 01:51 | ECWPNPC ---
PATIENT NAME: JAY HORTON : 1990 GENDER: FEMALE VISIT DATE: 07/21/2017 DISCHARGE DATE: 07/21/17 1527 VISIT LOCKED DATE TIME: PHYSICIAN: ANDREA MELGOZA RESOURCE: ANDREA MELGOZA REASON FOR APPOINTMENT 1. BACK HISTORY OF PRESENT ILLNESS HISTORY OF PRESENT ILLNESS: PAIN THE PATIENT DESCRIBES THE PAIN... FALL RISK SCREENING: SCREENING :NO FALLS IN THE PAST YEAR TODAY'S VISIT: NOTES: RATES PAIN TODAY 2/10. NOTES PROLONGED STANDING IS UNCOMFORTABLE. PAIN IS INTERMITTANT, SHARP AND STABBING AND IS LOCATED ACROSS THE LOW BACK AND INTO BOTH LEGS, RIGHT GREATER THAN THE LEFT. . CURRENT MEDICATIONS TAKING MELOXICAM 15 MG TABLET 1 TABLET ORALLY ONCE A DAY TAKING BACLOFEN 10 MG TABLET 1 TABLET WITH FOOD OR MILK ORALLY THREE TIMES A DAY NOT-TAKING PREDNISONE 20 MG TABLET 1 TABLET ORALLY TAKE 1 TAB TWICE A DAY X 3 DAYS AND THEN 1/2 TAB TWICE A DAY X 3 DAYS NOT-TAKING GUMMI BEAR MULTIVITAMIN/MIN NOT-TAKING LIDOCAINE HCL 20 MG/ML SOLUTION 10 ML MOUTH/THROAT EVERY 3 HRS MEDICATION LIST REVIEWED AND RECONCILED WITH THE PATIENT PAST MEDICAL HISTORY BACK PAIN ALLERGIES PENICILLIN (FOR ALLERGIES USE ONLY): HIVES: ALLERGY SURGICAL HISTORY BACK SURGERY 2009, 2010, AND 2015 CHOLECYSTECTOMY 01/2013 C-SECTIONS 12/2013 AND 05/2016 SOCIAL HISTORY GENERAL: TOBACCO USE ARE YOU A:CURRENT SMOKER ARE YOU INTERESTED IN QUITTING?NOT READY TO QUIT COUNSELED THE PATIENT ON SMOKING EFFECTS, EDUCATION [id number]/30/2017 HOW MANY CIGARETTES A DAY DO YOU SMOKE?11-20 PATIENT COUNSELED ON THE DANGERS OF TOBACCO USE AND URGED TO QUIT:07/21/2017 RECREATIONAL DRUG USE DRUG USE?NO CAFFEINE CAFFEINE USE?NO DIET: REGULAR. SABIANISM [id number] NONE LANGUAGE LANGUAGES SPOKEN:YI LEARNING BARRIERS / SPECIAL NEEDS CHANGE FROM LAST VISIT?NO BARRIERS TO LEARNING?NO HEARING IMPAIRED?NO VISION IMPAIRED?NO COGNITIVELY IMPAIRED?NO READINESS TO LEARN?YES LEARNING PREFERENCES?NO LEARNING CAPABILITIES PRESENT?YES EMOTIONAL BARRIERS?NO SPECIAL DEVICES?NO SLOT ATTENDANT NEEDED?NO PAIN CLINIC PFS, CLERGY, PUBLIC HEALTH REFERRALS PFS REFERRAL NEEDED?NO CLERGY REFERRAL NEEDED?NO PUBLIC HEALTH REFERRAL NEEDED?NO WAS THE PROVIDER NOTIFIED OF ANY PERTINENT INFO?NO HAS THE PATIENT BEEN EDUCATED REGARDING HIS/HER PLAN OF CARE?YES HAS THE PATIENT BEEN EDUCATED REGARDING PAIN, THE RISK FOR PAIN, THE IMPORTANCE OF EFFECTIVE PAIN MANAGEMENT, AND THE PAIN ASSESSMENT PROCESS?YES PATIENT: ____. ADVANCE DIRECTIVES HEALTH CARE PROXY?NO WOULD YOU LIKE MORE INFORMATION?NO DO YOU HAVE A DNR?NO WOULD YOU LIKE MORE INFORMATION?NO LIVING WILL?NO WOULD YOU LIKE MORE INFORMATION?NO POWER OF DIRECTOR CRITICAL CARE?NO WOULD YOU LIKE MORE INFORMATION?NO HOSPITALIZATION/MAJOR DIAGNOSTIC PROCEDURE SURGERY RELATED REVIEW OF SYSTEMS REVIEWED BY: PROVIDER: . CONSTITUTIONAL: ANY CHANGE IN YOUR MEDICAL CONDITION? NO . CHILLS NO . FEVER NO . INFECTION: DO YOU HAVE NEW INFECTIONS? NO . DO YOU HAVE HISTORY OF MRSA? NO . MUSCULOSKELETAL: ANY NEW PATTERNS OF PAIN OR NUMBNESS? NO . GASTROENTEROLOGY: ANY NEW CHANGE IN BOWEL CONTROL? NO . GENITOURINARY: ANY NEW CHANGE IN BLADDER CONTROL? NO . IS THERE A CHANCE YOU COULD BE ? NO . HEMATOLOGY/LYMPH: DO YOU TAKE ANY BLOOD THINNERS? (FOR EXAMPLE- COUMADIN, PLAVIX, AGGRENOX, PLATEL, PRADAXA, OR XARELTO) NO . WHEN WAS YOUR LAST DOSE? DATE: TIME: . NEUROLOGY: HAVE YOU FALLEN IN THE PAST 6 MONTHS? NO . ANY NEW EXTREMITY NUMBNESS OR WEAKNESS? NO . CARDIOLOGY: DO YOU HAVE A PACEMAKER OR DEFIBRILLATOR? NO . RESPIRATORY: HAVE YOU BEEN SICK IN THE PAST WEEK? NO . FEVER NO . FLU LIKE SYMPTOMS? NO . COUGH NO . INTEGUMENTARY: DO YOU HAVE ANY RASHES OR OPEN SORES? NO . ALLERGIC/IMMUNO: ARE YOU ALLERGIC TO SHELLFISH OR IV DYE? NO . ANY NEW ALLERGIES? NO . PSYCHIATRIC: DO YOU HAVE THOUGHTS OF HURTING YOURSELF OR SOMEONE ELSE? NO . ARE YOU ABUSED, NEGLECTED, OR IN AN UNSAFE ENVIRONMENT? NO . ENDOCRINOLOGY: ARE YOU DIABETIC? NO . OTHER: DO YOU NEED ANY PRESCRIPTIONS? YES, MELOXICAM . IF YES, PLEASE LIST: ____ . ANY NEW PROBLEMS WITH YOUR MEDICATIONS? NO . WHEN DID YOU LAST EAT? ____ . WHEN DID YOU LAST DRINK? ____ . WHAT DID YOU LAST DRINK? ____ . NAME OF PERSON DRIVING YOU HOME? ____ . DO YOU HAVE ANY OTHER QUESTIONS OR CONCERNS NO . VITAL SIGNS WT 205 LBS, HT 57 IN, BMI 44.36 INDEX, BP 134/73 MM HG, HR 65 /MIN, RR 16 /MIN, TEMP 97.1 F, OXYGEN SAT % 97%, NA INITIALS SC 14:52, REVIEWED BY: LEONA. EXAMINATION GENERAL EXAMINATION: PSYCHALERT , ORIENTED X 3 , APPROPRIATE MOOD AND AFFECT. LUNGS:CLEAR TO AUSCULTATION BILATERALLY, NO WHEEZES, RALES OR RHONCHI. HEART:HEART RATE REGULAR. MUSCULOSKELETAL:MUSCLE STRENGTH TESTING 5-/5 LEFT LLOWER EEXTREMITY, 5/5 RIGHT LOWER EXTREMITY. POSTURE UPRIGHT, GAIT NONANTALGIC. TENDER WITH PALPATION OVER LUMBAR SPINOUS PROCESSES. . 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 DO LEG LIFTS DAILY. PROCEDURE CODES FA211 ESTABILISHED PATIENT [facility] CHARGE DISPOSITION & COMMUNICATION FOLLOW UP LATE SEP (REASON: BACK PAIN) ELECTRONICALLY SIGNED BY VERONICA LU ON 08/18/2017 AT 08:36 AM EST DISCLAIMER : THIS IS A VISIT SUMMARY EXTRACTED FROM THE [facility] CHART. IT IS NOT A COPY OF THE [facility] PROGRESS NOTE. TANIA
== END ==
LOC: M PAIN 14:30
PROVIDERS: ATTEND Nurse Practitioner Family
DX: M51.17 Intervertebral disc disorders with radiculopathy, lumbosacral region (principal); M96.1 Postlaminectomy syndrome, not elsewhere classified; F17.210 Nicotine dependence, cigarettes, uncomplicated; Z79.899 Other long term (current) drug therapy; Z88.0 Allergy status to penicillin

== ENCOUNTER → 2017-10-13 | Outpatient (CLI) | payer OTHER | LOC: M PAIN 13:00 | DX: M51.17 Intervertebral disc disorders with radiculopathy, lumbosacral region (principal); M96.1 Postlaminectomy syndrome, not elsewhere classified; F17.210 Nicotine dependence, cigarettes, uncomplicated; Z79.899 Other long term (current) drug therapy; Z88.0 Allergy status to penicillin | CPT/HCPCS: G0463 ==